=== PATIENT | female | born 1990 ===

== ENCOUNTER 2017-07-14 08:02 | Emergency (ER) | payer MEDICAID ==
[2017-07-14 08:32] VITALS: O2SAT 99
--- NOTE | 2017-07-14 08:45 | C.PDOC ---
History Of Present Illness 26 yr old female presents to the ER with complaints of constipation for the past 6 days. Patient states she has not had a normal bowel movement in the past 6 days, only 1 or 2 hard pieces of stool have came out. Patient also reports of urinary frequency and superpubic pain, which is associated with dysuria and hematuria for the past 3-4 days. Patient denies fever, chills, nausea, vomiting , back pain, weakness or numbness. Time Seen by Provider: 07/14/17 08:12 Chief Complaint (Nursing): Female Genitourinary History Per: Patient History/Exam Limitations: no limitations Onset/Duration Of Symptoms: Days, Persistent Associated Symptoms: denies: Vomiting Alleviating Factors: None Recent travel outside of the [place]: No Past Medical History Reviewed: Historical Data, Nursing Documentation, Vital Signs Vital Signs: Last Vital Signs Temp 98.2 F 07/14/17 08:05 Pulse 93 H 07/14/17 08:05 Resp 16 07/14/17 08:05 BP 113/79 07/14/17 08:05 Pulse Ox 99 07/14/17 09:25 - Medical History PMH: No Chronic Diseases Surgical History: No Surg Hx Family History: States: No Known Family Hx - Social History Hx Alcohol Use: No Hx Substance Use: No - Immunization History Hx Tetanus Toxoid Vaccination: Yes Hx Influenza Vaccination: No Hx Pneumococcal Vaccination: No Review Of Systems Except As Marked, All Systems Reviewed And Found Negative. Constitutional: Negative for: Fever, Chills Gastrointestinal: Positive for: Abdominal Pain (Superpubic pain), Constipation. Negative for: Nausea, Vomiting Genitourinary: Positive for: Dysuria, Hematuria Musculoskeletal: Negative for: Back Pain Neurological: Negative for: Weakness, Numbness Physical Exam - Physical Exam Appears: Non-toxic, No Acute Distress Skin: Warm, Dry, No Rash Head: Atraumatic, Normacephalic Eye(s): bilateral: Normal Inspection, PERRL, EOMI Oral Mucosa: Moist Neck: Normal ROM, Supple Chest: Symmetrical, No Tenderness Cardiovascular: Rhythm Regular, No Friction Rub, No Murmur Respiratory: Normal Breath Sounds, No Rales, No Wheezing Gastrointestinal/Abdominal: Bowel Sounds (active), Soft, Tenderness (Superpubic tenderness), No Distention, No Guarding, No Rebound Back: Normal Inspection, No CVA Tenderness Pelvic: Normal External Exam, No Vaginal Bleeding, No Vaginal Discharge, No Cervical Motion Tenderness, No Adnexal Tenderness, Other (Closed Cervix. Auricular Therapist: Coral Jennings RN) Extremity: Normal ROM, No Swelling Neurological/Psych: Oriented x3, Normal Speech, Normal Motor Gait: Steady ED Course And Treatment O2 Sat by Pulse Oximetry: 99 (RA) Pulse Ox Interpretation: Normal - Other Rad obstructive series X-Ray: Interpreted by Me Interpretation: No obstruction or free air. (+) constipation Medical Decision Making Medical Decision Making: PLAN: * X-Ray - Obstructive Series * HCG * Urinalysis * Cipro PO * Pyridium PO On re-exam, the patient reports improvement of symptoms and is pain free. Lungs are CTA, heart is RRR, abdomen is soft, non-tender and patient is tolerating PO well. Ambulatory in the ED with steady gait. Follow up with the medical doctor within 1-2 days, Return if worsened. Disposition - Disposition Disposition: HOME/ ROUTINE Disposition Time: 09:59 Condition: GOOD Forms: [employer] (P[place]an) - Clinical Impression Clinical Impression: UTI (urinary tract infection), Constipation - PA / HARM REDUCTION WORKER / Resident Statement MD/DO has reviewed & agrees with the documentation as recorded. - Scribe Statement The provider has reviewed the documentation as recorded by the Scribe Felicitas Benitez All medical record entries made by the Purviibe were at my direction and personally dictated by me. I have reviewed the chart and agree that the record accurately reflects my personal performance of the history, physical exam, medical decision making, and the department course for this patient. I have also personally directed, reviewed, and agree with the discharge instructions and disposition.
[2017-07-14 08:50] LABS: RBC URINE 772 /hpf (0-3); URINE BILIRUBIN NEGATIVE (NEGATIVE); URINE BLOOD 3+ (NEGATIVE); URINE COLOR Yellow (YELLOW); URINE GLUCOSE (UA) NORMAL (Normal); URINE KETONE NEGATIVE (NEGATIVE); URINE LEUKOCYTE ESTERASE 3+ Leu/uL (Negative); URINE PROTEIN 2+ mg/dL (NEGATIVE); URINE UROBILINOGEN NORMAL mg/dL (0.2-1.0); WBC URINE 2096 /hpf (0-5)
[2017-07-14 10:13] VITALS: BP 116/75; PULSE 72; RESP 18; TEMP 98.1
--- NOTE | 2017-07-14 13:27 | RAD ---
PROCEDURE: Radiographs of the chest and abdomen (obstructive series) HISTORY: constipation, lower abd pain COMPARISON: No prior. TECHNIQUE: AP radiograph of the chest, with upright and supine radiographs of the abdomen. FINDINGS: CHEST: Lungs: Clear. Cardiovascular: Normal size heart. No pulmonary vascular congestion. Pleura: No pleural fluid. No pneumothorax. Other findings: None. ABDOMEN AND PELVIS: Bowel: No evidence bowel obstruction. Distended loop of bowel in the left lower abdomen likely sigmoid apex. Free air: None. Bones: Unremarkable. Other findings: None. IMPRESSION: Unremarkable radiographs of chest and abdomen. No evidence of mechanical bowel obstruction.
== END 2017-07-14 10:23 | disposition home or self-care (01) ==
LOC: C.ER 08:02
DX: K59.00 Constipation, unspecified (principal); N39.0 Urinary tract infection, site not specified

== ENCOUNTER 2017-10-16 21:37 | Emergency (ER) | payer SELFPAY ==
[2017-10-16 21:44] VITALS: BP 106/73; PULSE 83; RESP 20; TEMP 97.8; O2SAT 98
[2017-10-16 22:18] LABS: RBC URINE 2 /hpf (0-3); URINE BACTERIA RARE (<OCC); URINE BILIRUBIN NEGATIVE (NEGATIVE); URINE BLOOD NEGATIVE (NEGATIVE); URINE COLOR Yellow (YELLOW); URINE GLUCOSE (UA) NORMAL (Normal); URINE KETONE NEGATIVE (NEGATIVE); URINE LEUKOCYTE ESTERASE 1+ Leu/uL (Negative); URINE PROTEIN NEGATIVE (NEGATIVE); URINE UROBILINOGEN NORMAL mg/dL (0.2-1.0); WBC URINE 6 /hpf (0-5)
--- NOTE | 2017-10-16 22:40 | C.PDOC ---
History Of Present Illness 26 year old female presents to the ER with a complaint of thick while vaginal discharge for the past 3 days with itching today, stating "I think I have a yeast infection". Patient reports having similar symptoms in July which resolved with medication. Denies UTI symptoms or abdominal pain. Time Seen by Provider: 10/16/17 22:18 Chief Complaint (Nursing): Female Genitourinary History Per: Patient History/Exam Limitations: no limitations Onset/Duration Of Symptoms: Days Current Symptoms Are (Timing): Still Present Associated Symptoms: Other (Itching). denies: Fever, Chills, Urinary Symptoms Recent travel outside of the [place]: No Abnormal Vaginal Bleeding: No Past Medical History Reviewed: Historical Data, Nursing Documentation, Vital Signs Vital Signs: Last Vital Signs Temp 97.8 F 10/16/17 21:40 Pulse 83 10/16/17 21:40 Resp 20 10/16/17 22:49 BP 106/73 10/16/17 21:40 Pulse Ox 98 10/17/17 03:36 - Medical History PMH: No Chronic Diseases Surgical History: No Surg Hx Family History: States: Unknown Family Hx - Social History Hx Alcohol Use: No Hx Substance Use: No - Immunization History Hx Tetanus Toxoid Vaccination: Yes Hx Influenza Vaccination: No Hx Pneumococcal Vaccination: No Review Of Systems Constitutional: Negative for: Fever, Chills Gastrointestinal: Negative for: Abdominal Pain Genitourinary: Positive for: Vaginal Discharge. Negative for: Dysuria, Hematuria Physical Exam - Physical Exam Appears: Non-toxic, No Acute Distress Skin: Normal Color, Warm, Dry Head: Atraumatic, Normacephalic Eye(s): bilateral: Normal Inspection Oral Mucosa: Moist Gastrointestinal/Abdominal: Soft, No Tenderness, No Distention Pelvic: Other (Patient refused) Neurological/Psych: Oriented x3, Normal Speech ED Course And Treatment O2 Sat by Pulse Oximetry: 98 (Room air) Pulse Ox Interpretation: Normal Progress Note: UA and Upreg ordered. Patient will be treated for candidiasis and instructed to follow up with OUTS[employer] SALESMAN. Disposition Counseled Patient/Family Regarding: Diagnosis, Need For Followup - Disposition Referrals: [facility] at [facility] [Outside] Disposition: HOME/ ROUTINE Disposition Time: 22:37 Condition: STABLE Additional Instructions: Take meds as directed Follow up with PMD Wear ventilated clothing Return to ER if worse Prescriptions: Fluconazole [Diflucan] 150 mg PO ONCE #1 tab Instructions: Vulvovaginal Candidiasis (ED) Forms: [facility] ([facility] Connect ([place] Arabian) - Clinical Impression Clinical Impression: Vulvovaginal candidiasis - PA / COMMUNITY CENTER WORKER / Resident Statement MD/DO has reviewed & agrees with the documentation as recorded. - Scribe Statement The provider has reviewed the documentation as recorded by the Scribe Nathaniel Perdue All medical record entries made by the Scribe were at my direction and personally dictated by me. I have reviewed the chart and agree that the record accurately reflects my personal performance of the history, physical exam, medical decision making, and the department course for this patient. I have also personally directed, reviewed, and agree with the discharge instructions and disposition.
== END 2017-10-16 22:49 | disposition home or self-care (01) ==
LOC: C.ER 21:37
DX: B37.3 Candidiasis of vulva and vagina (principal)

== ENCOUNTER 2017-11-10 19:59 | Emergency (ER) | payer SELFPAY ==
[2017-11-10 20:16] VITALS: BP 114/75; PULSE 111; TEMP 99.7; O2SAT 98
[2017-11-10 20:34] LABS: HCG,QUALITATIVE URINE NEGATIVE (NEGATIVE)
[2017-11-10 20:37] LABS: SQUAMOUS EPITHIAL 19 /hpf (0-5); URINE BACTERIA MOD (<OCC); URINE BILIRUBIN NEGATIVE (NEGATIVE); URINE BLOOD 1+ (NEGATIVE); URINE CLARITY Clear (Clear); URINE COLOR Amber (YELLOW); URINE GLUCOSE (UA) NORMAL (Normal); URINE LEUKOCYTE ESTERASE 1+ Leu/uL (Negative); URINE NITRATE POSITIVE (NEGATIVE); URINE PROTEIN 1+ mg/dL (NEGATIVE)
--- NOTE | 2017-11-10 21:17 | C.PDOC ---
History Of Present Illness 27 y/o female presents to the ER complaining of a fever which has been present since yesterday. Patient reports that she has a sore throat since the morning. Patient states that she has dysuria. She has a history of urinary tract infection and she states that she has a rash in her genital area. She denies having vomiting and diarrhea. Time Seen by Provider: 11/10/17 20:11 Chief Complaint (Nursing): Female Genitourinary History Per: Patient History/Exam Limitations: no limitations Onset/Duration Of Symptoms: Days Current Symptoms Are (Timing): Still Present Severity: Moderate Past Medical History Reviewed: Historical Data, Nursing Documentation, Vital Signs Vital Signs: Last Vital Signs Temp 99.7 F H 11/10/17 20:03 Pulse 111 H 11/10/17 20:03 Resp 20 11/10/17 21:39 BP 114/75 11/10/17 20:03 Pulse Ox 98 11/10/17 21:20 - Medical History PMH: No Chronic Diseases Surgical History: No Surg Hx Family History: States: No Known Family Hx - Social History Hx Alcohol Use: No Hx Substance Use: No - Immunization History Hx Tetanus Toxoid Vaccination: Yes Hx Influenza Vaccination: No Hx Pneumococcal Vaccination: No Review Of Systems Except As Marked, All Systems Reviewed And Found Negative. Constitutional: Positive for: Fever. Negative for: Chills ENT: Positive for: Throat Pain. Negative for: Nose Congestion Respiratory: Negative for: Cough Gastrointestinal: Negative for: Vomiting, Diarrhea Genitourinary: Positive for: Dysuria, Rash Physical Exam - Physical Exam Appears: Non-toxic, No Acute Distress Skin: Normal Color, Warm, No Rash Head: Atraumatic, Normacephalic Eye(s): bilateral: Normal Inspection, PERRL Nose: Normal Oral Mucosa: Moist Throat: Normal, No Erythema, No Exudate Neck: Supple Chest: Symmetrical Cardiovascular: Rhythm Regular, No Friction Rub, No Murmur Respiratory: Normal Breath Sounds, No Accessory Muscle Use Gastrointestinal/Abdominal: Normal Exam, Soft, No Tenderness Extremity: Normal ROM Neurological/Psych: Oriented x3, Normal Speech, Normal Cognition, Normal Motor, Normal Sensation Gait: Steady ED Course And Treatment O2 Sat by Pulse Oximetry: 98 (RA) Pulse Ox Interpretation: Normal Medical Decision Making Medical Decision Making: Plan: --Cipro - 500 mg PO --Motrin - 600 mg PO -- Claritin - 10 mg PO --Urine Culture Stat Disposition - Disposition Referrals: [facility] at [facility] [Outside] Disposition: HOME/ ROUTINE Disposition Time: 21:15 Condition: GOOD Additional Instructions: Follow up with the medical doctor within 1-2 days. return if worsened Prescriptions: Ciprofloxacin [Cipro] 1 tab PO BID #14 tab Ibuprofen [Motrin] 1 tab PO TID PRN #30 tab PRN Reason: Pain Loratadine [Claritin] 10 mg PO DAILY #10 tab Phenazopyridine HCl [Pyridium] 200 mg PO TID #7 tablet Instructions: Urinary Tract Infection in Women (DC), Upper Respiratory Infection (ED) Forms: [employer] (Samoan) - Clinical Impression Clinical Impression: UTI (urinary tract infection), URI (upper respiratory infection) - PA / SOLUTIONS SALES CONSULTANT / Resident Statement MD/DO has reviewed & agrees with the documentation as recorded. - Scribe Statement The provider has reviewed the documentation as recorded by the Alan Elise Provider Attestation All medical record entries made by the Alan were at my direction and personally dictated by me. I have reviewed the chart and agree that the record accurately reflects my personal performance of the history, physical exam, medical decision making, and the department course for this patient. I have also personally directed, reviewed, and agree with the discharge instructions and disposition.
[2017-11-10 21:40] VITALS: RESP 20
== END 2017-11-10 21:39 | disposition home or self-care (01) ==
LOC: C.ER 19:59
DX: N39.0 Urinary tract infection, site not specified (principal); J06.9 Acute upper respiratory infection, unspecified

== ENCOUNTER 2018-07-30 13:32 | Emergency (ER) | payer OTHER ==
[2018-07-30 13:40] VITALS: BP 110/68; PULSE 85; RESP 18; TEMP 98.4; O2SAT 98
--- NOTE | 2018-07-30 13:52 | C.PDOC ---
History Of Present Illness 27 yo female come in for evaluation of laceration sustained to left hand yesterday at 11 PM. Pt reports, " it hurts, was unable to sleep last night". Otherwise, pt denies active bleeding, denies weakness, deformity, sensory or vascular deficits to left hand. Ambulate to Ed for evaluation, not in any apparent distress. Time Seen by Provider: 07/30/18 13:42 Chief Complaint (Nursing): Abnormal Skin Integrity History Per: Patient Onset/Duration Of Symptoms: Sudden Onset Past Medical History Reviewed: Historical Data, Nursing Documentation, Vital Signs Vital Signs: Last Vital Signs Temp 98.4 F 07/30/18 13:37 Pulse 85 07/30/18 13:37 Resp 18 07/30/18 13:37 BP 110/68 07/30/18 13:37 Pulse Ox 98 07/30/18 13:54 - Medical History PMH: No Chronic Diseases Family History: States: Unknown Family Hx - Social History Hx Alcohol Use: No Hx Substance Use: No - Immunization History Hx Tetanus Toxoid Vaccination: No Hx Influenza Vaccination: No Hx Pneumococcal Vaccination: No Review Of Systems Except As Marked, All Systems Reviewed And Found Negative. Constitutional: Negative for: Fever, Chills ENT: Negative for: Throat Pain Musculoskeletal: Positive for: Hand Pain Skin: Positive for: Lesions Neurological: Negative for: Weakness, Numbness Physical Exam - Physical Exam Appears: Well, Non-toxic, No Acute Distress Skin: Normal Color, Warm, Other (2cm laceration medial aspect Left 1st proximal phalanx, helaing well, No edema, no erythema, no active bleeding. ) Head: Normacephalic Eye(s): bilateral: PERRL Extremity: Normal ROM (Left hand, no neurovascular deficits), Tenderness (mild over base of left thumb over laceration.), Capillary Refill (less than 2sec to Left hand), No Deformity, No Swelling Pulses: Left Radial: Normal Neurological/Psych: Oriented x3, Normal Speech, Normal Motor, Normal Sensation, Normal Reflexes ED Course And Treatment O2 Sat by Pulse Oximetry: 98 Pulse Ox Interpretation: Normal Progress Note: On re-master, pt is afebrile, hemodynamicaly stable. Non-toxic. Left hand: wound thoughly cleaned, closed with skin adhesive. FAROM of Left hand, no neurovascular deficits. tetanus offered to patient, refused at presnt time. Pt advised. re. to f/u with Ped in 2-3 days for re-eavl. return if any new changes. Laceration - Laceration Repair Left proximal 1st phalanx Wound Length (In cm): 2cm Description Of Wound: Linear Wound Cleansed With: Betadine Wound Examination: Irrigated With Saline, No FB With Wound Exploration, No Tendon Injury With Wound Exploration Wound Closure: Steri Strips, Skin Glue Wound Complexity: Simple Disposition Counseled Patient/Family Regarding: Diagnosis, Need For Followup - Disposition Referrals: [facility] at [facility] [Outside] Disposition: HOME/ ROUTINE Disposition Time: 13:53 Condition: STABLE Additional Instructions: Keep wound clean, dry for 5-6 days Ibuprofen for pain as need Finger splint for comfort Follow up with PMD in 2-3 days for re-evaluation. return to D if any worsening or new changes. Instructions: Laceration Repair With Glue (DC) Forms: [employer] (Czech) - Clinical Impression Clinical Impression: Laceration of finger
== END 2018-07-30 14:23 | disposition home or self-care (01) ==
LOC: C.ER 13:32
DX: S61.012A Laceration without foreign body of left thumb without damage to nail, initial encounter (principal); X58.XXXA Exposure to other specified factors, initial encounter

== ENCOUNTER 2018-12-03 16:47 | Emergency (ER) | payer OTHER ==
[2018-12-03 17:13] VITALS: BP 110/74; PULSE 99; RESP 20; TEMP 98.3; O2SAT 99
--- NOTE | 2018-12-03 17:55 | C.PDOC ---
History Of Present Illness 28 y/o female presents to the ED complaining of a sore throat, runny nose, fevers, and bodyaches for the last 4 days. Patient has been taking Tylenol, Motrin, and cough syrup as well as consuming chicken soup. States she is now losing her voice. Time Seen by Provider: 12/03/18 17:20 Chief Complaint (Nursing): ENT Problem History Per: Patient History/Exam Limitations: no limitations Onset/Duration Of Symptoms: Days Current Symptoms Are (Timing): Still Present Location Of Pain: Throat Associated Symptoms: Fever, Nasal Congestion Past Medical History Reviewed: Historical Data, Nursing Documentation, Vital Signs Vital Signs: Last Vital Signs Temp 98.3 F 12/03/18 17:12 Pulse 99 H 12/03/18 17:12 Resp 20 12/03/18 17:12 BP 110/74 12/03/18 17:12 Pulse Ox 99 12/03/18 17:12 - Medical History PMH: No Chronic Diseases Surgical History: No Surg Hx Family History: States: Unknown Family Hx - Social History Hx Tobacco Use: No Hx Alcohol Use: No Hx Substance Use: No - Immunization History Hx Tetanus Toxoid Vaccination: No Hx Influenza Vaccination: No Hx Pneumococcal Vaccination: No Review Of Systems Constitutional: Positive for: Fever, Other (Body aches). Negative for: Weakness Eyes: Negative for: Redness, Other (scleral icterus) ENT: Positive for: Nose Discharge, Nose Congestion, Throat Pain. Negative for: Mouth Swelling Cardiovascular: Negative for: Chest Pain Respiratory: Positive for: Cough. Negative for: Shortness of Breath Gastrointestinal: Negative for: Nausea, Vomiting, Diarrhea Genitourinary: Negative for: Dysuria, Hematuria Musculoskeletal: Negative for: Back Pain Skin: Negative for: Rash Neurological: Negative for: Weakness, Numbness, Dizziness Physical Exam - Physical Exam Appears: Non-toxic, No Acute Distress Skin: Normal Color, Warm, No Rash Head: Atraumatic, Normacephalic Eye(s): bilateral: Normal Inspection (no scleral icterus), PERRL, EOMI Nose: Discharge (Nasal congestion, rhinorrhea) Oral Mucosa: Moist Throat: Normal (Pharynx is clear), No Erythema, No Exudate, Other (No muffled voice, patient able to swallow) Neck: Normal ROM, Supple Lymphatic: No Adenopathy (No cervical node enlargement) Chest: Symmetrical Cardiovascular: Rhythm Regular, No Friction Rub Respiratory: Normal Breath Sounds, No Rales, No Rhonchi, No Wheezing Gastrointestinal/Abdominal: Soft, No Distention Extremity: Bilateral: Atraumatic, Normal Color And Temperature Pulses: Left Radial: Normal, Right Radial: Normal Neurological/Psych: Oriented x3, Normal Cranial Nerves Gait: Steady ED Course And Treatment - Laboratory Results Lab Interpretation: Abnormal (+ flu) O2 Sat by Pulse Oximetry: 99 (RA) Pulse Ox Interpretation: Normal Medical Decision Making Medical Decision Making: Impression: Flu-like symptoms Plan: Swabs sent for flu and strep. 18:00 Labs resulted, + flu A. Patient counseled regarding diagnosis and treatment plan. Will d/c patient home with Tamiflu. Advised to follow up with PMD in 1-2 days. Disposition Counseled Patient/Family Regarding: Studies Performed, Diagnosis, Need For Followup, Rx Given - Disposition Disposition: HOME/ ROUTINE Disposition Time: 18:00 Condition: STABLE Prescriptions: Oseltamivir Phosphate [Tamiflu] 75 mg PO BID 5 Days capsule Instructions: Flu, Adult (DC) Forms: [employer] (Liberian) - Clinical Impression Clinical Impression: Influenza A - PA / GRANITE SETTER / Resident Statement MD/DO has reviewed & agrees with the documentation as recorded. - Scribe Statement The provider has reviewed the documentation as recorded by the Purviibduke Wick All medical record entries made by the Scribe were at my direction and personally dictated by me. I have reviewed the chart and agree that the record accurately reflects my personal performance of the history, physical exam, medical decision making, and the department course for this patient. I have also personally directed, reviewed, and agree with the discharge instructions and disposition.
== END 2018-12-03 18:27 | disposition home or self-care (01) ==
LOC: C.ER 16:47
DX: J09.X2 Influenza due to identified novel influenza A virus with other respiratory manifestations (principal)